=== PATIENT | female | born 1955 | race Caucasian/White ===

== ENCOUNTER 2016-11-01 14:32 | Outpatient (CLI) | payer BC ==
--- NOTE | 2016-11-04 11:19 | DIAGNOSTIC IMAGING REPORT ---
PROCEDURE: MG BILATERAL DIAGNOSTIC W/CAD INDICATION: Palpable areas and tenderness bilateral breasts. TECHNIQUE: CC and MLO digital views of each breast with true-lateral digital view of bilateral breasts. In addition, spot compression CC and MLO views were obtained of the upper outer and lateral aspects of bilateral breasts. Finally, high-resolution bilateral breast ultrasound was performed (18 mHz). COMPARISON: Comparison made to prior mammogram studies on 02/12/2016, 06/20/2011, and 08/31/2010. FINDINGS: MAMMOGRAM: Computer-aided detection applied. Dense parenchymal pattern with a few dystrophic calcifications. There are small intramammary lymph nodes in the lateral breasts. There is no evidence of mass or suspicious calcification. There is a surgical micro clip in the lateral left breast BREAST ULTRASOUND: Right ultrasound: There is a 7 mm normal intramammary lymph node in the lateral right breast. There is no evidence of mass or cyst. Left ultrasound: There is a 7 mm normal intramammary lymph node in the lateral left breast. There is no evidence of mass or cyst. IMPRESSION: 1. Negative mammogram and negative bilateral breast ultrasound. 2. Adjust screening schedule to October 2017. 3. Findings discussed with the patient. RESULT CODE: 2- Benign finding(s). A. A negative report should not delay biopsy if a dominant or clinically suspicious mass is present. 10-15% of cancers are not identified by x-ray. B. A negative report may reinforce clinical impression. C. Adenosis and dense breasts may obscure an underlying neoplasm. D. False positive reports average 6-10%. E.. A yearly screening mammogram is recommended. A reminder letter will be scheduled.
== END 2016-11-01 23:00 ==
LOC: MAM SRH 14:32 → XR SRH 14:45 → MAM SRH 14:45
DX: N63 Unspecified lump in breast (principal)